=== PATIENT | male | born 1960 | race Caucasian/White ===

== ENCOUNTER 2021-02-11 14:36 | Outpatient (CLI) | payer BC, SELFPAY ==
[2021-02-11 14:50] VITALS: BP 110/65; PULSE 67; RESP 18; TEMP 36.6; O2SAT 94; BMI 23.6
[2021-02-11 15:19] VITALS: BP 100/59; PULSE 65; RESP 18; O2SAT 94
[2021-02-11 16:03] VITALS: BP 107/62; PULSE 67; RESP 18; TEMP 37.1; O2SAT 95
== END 2021-02-11 14:37 | disposition home or self-care (01) ==
PROVIDERS: PCP Family Medicine; Visit Provider Nurse Practitioner Family
DX: U07.1 COVID-19 (principal)
CPT/HCPCS: 87426; 96365

== ENCOUNTER → 2024-05-02 08:34 | Outpatient (BNVA) | payer BC, SELFPAY | PROVIDERS: PCP Family Medicine; Visit Provider Family Medicine | DX: Z00.00 Encounter for general adult medical examination without abnormal findings (principal); I25.10 Atherosclerotic heart disease of native coronary artery without angina pectoris; N40.0 Benign prostatic hyperplasia without lower urinary tract symptoms; R40.0 Somnolence; R53.83 Other fatigue; E03.9 Hypothyroidism, unspecified | CPT/HCPCS: 80053; 80061; 82607; 84443; 85025; G0103 ==

== ENCOUNTER 2024-06-24 13:05 | Outpatient (CLI) | payer BC, SELFPAY ==
[2024-06-24 13:57] LABS: Testosterone Total 595.3 ng/dL (193-740)
== END 2024-06-24 13:06 | disposition home or self-care (01) ==
LOC: LAB 13:06
PROVIDERS: PCP Family Medicine; Visit Provider Urology
DX: R53.83 Other fatigue (principal)
CPT/HCPCS: 36415; 84403